=== PATIENT | female | born 1970 | race American Indian/Alaskan Native ===

== ENCOUNTER 2017-10-06 10:16 | Outpatient (CLI) | payer OTHER ==
--- NOTE | 2017-10-06 15:34 | Mammography Report ---
Diagnostic right mammogram and targeted right breast ultrasound. History: Recall for right asymmetry. Findings: Spot compression images confirm the presence of a vague parenchymal density at the 9:00 position which is somewhat bilobed in contour. Sonographic evaluation of this area demonstrates a bilobed circumscribed uniformly hypoechoic lesion measuring 0.7 x 0.2 cm. This is seen at the 9:00 position, 5 cm from the nipple and correlates in size and location to the mammographic density. There is no acoustic shadowing. Impression: The mammographic density demonstrates benign features sonographically. This may represent an atypical appearing lymph node. BI-RADS code: 3. Recommendation: A six-month followup ultrasound study is recommended to ensure stability.
== END 2017-10-06 10:17 | disposition home or self-care (01) ==
LOC: MAMMO 10:16
PROVIDERS: ATTEND Internal Medicine
DX: R92.8 Other abnormal and inconclusive findings on diagnostic imaging of breast (principal)
CPT/HCPCS: 76642; G0204; 77066